=== PATIENT | male | born 1965 | race Two or more races ===

== ENCOUNTER 2024-06-25 18:10 | Emergency (ER) | payer BC, SELFPAY ==
[2024-06-25] VITALS (10 sets, daily range): BP systolic 124–212; BP diastolic 73–117; PULSE 61–87; RESP 14–18; TEMP 36.6–36.8; O2SAT 96–98; BMI 26.0
--- NOTE | 2024-06-25 19:07 | EKG_ITS ---
[facility] Test Date: 2024-06-25 Pat Name: VJ VAZQUEZ Department: Room: - Gender: Male [employer]ored Transport Service Manager: : 1965 Requested By: Konrad Bailey Order Number: [id number] Reading MD: Konrad Bailey Measurements Intervals [place] Rate: 55 P: 48 IL: 160 QRS: -10 QRSD: 112 T: 46 QT: 419 QTc: 401 Interpretive Statements SINUS BRADYCARDIA LEFT VENTRICULAR HYPERTROPHY AND ST-T CHANGE [VOLTAGE CRITERIA PLUS ST/T ABNORMALITY] No previous ECG available for comparison /store/S0/[id number].pdf
--- NOTE | 2024-06-25 19:07 | XR_ITS ---
Examination: CT brain head without contrast. 2-D sagittal coronal reconstructions Date and time of exam:June 25, 2024 1917 hrs. Indications: Onset headaches today CTDI: vol (mGy):47.9 DLP: (mGycm):973 Technique: Multiple CT axial sections of the brain have been obtained, 5 mm slice thickness. Contrast has not been administered. 2-D sagittal, coronal reconstructions have been obtained Low dose protocols were performed. One or more of the following dose reduction techniques were used; automated exposure control, adjustment of the mA and/or KV according to patient size, use of iterative reconstruction technique. Findings: Acute subdural hemorrhage involving the right and left cerebellar tentorium, greater left cerebellar tentorium, measuring up to 7 mm Subdural hemorrhage also along the cerebral falx measuring up to 12 mm in thickness involving the posterior cerebral falx Acute subdural hematoma peripheral to the posterior left parietal left occipital left temporal lobes measuring up to 12 mm in thickness There is mass effect upon the left trigone and there is shift of the frontal horns to the right approximately 3 mm Suspicious, axial image 23 4 minimal subarachnoid hemorrhage in the left sylvian fissure No ventricular hemorrhage No cranial vault appears intact Impression: Acute subdural hematoma peripheral to the posterior left parietal left occipital left temporal lobes measuring up to 12 mm in thickness, mass effect upon the left trigone and shift of the frontal horns to the right approximately 3 mm Additional acute subdural hemorrhage involving right and left cerebellar tentorium and especially posterior cerebral falx measuring up to 12 mm
--- NOTE | 2024-06-25 19:08 | EDNOTE_ITS ---
Nausea/Vomit./Diarrhea-RME/HPI General Chief complaint: Nausea/Vomiting/Diarrhea Stated complaint: N/VOMITING,H/A AFTER DRINKING COFFEE YEST. Time Seen by Provider: 06/25/24 18:26 Arrival date/time: 06/25/24 18:10 RME / HPI RME / HPI Narrative: Patient is a 59-year-old male with no known past medical history who presents with complaint of nausea and vomiting with headache onset yesterday. Patient states yesterday morning he woke up to drink coffee and then developed a headache. He then started having vomiting and he thought it would get better, but his headache did not resolve. Patient is not on any anticoagulation. No fevers. No abdominal pain. Denies diarrhea. Related Data Allergies Allergy/AdvReac Type Severity Reaction Status Date / Time No Known Allergies Allergy Verified 06/25/24 18:14 Review of Systems Review of Systems Narrative Review of Systems: Review of systems negative except as outlined in the HPI. ED Exam Narrative Physical exam: Constitutional: no acute distress, age appropriate, non-toxic Eyes: PERRL, conjunctivae w/o pallor, EOMI HENT: normocephalic, atraumatic. Oral mucosa moist Respiratory Effort: no stridor, effort normal, no retractions Breath sounds: Clear bilaterally; No rales, No rhonchi, No wheezing Cardiovascular: regular rhythm, S1 and S2 normal, no murmur Abdominal: soft; non-distended, non-tender Musculoskeletal: no deformities, no swelling, no LE edema Skin: warm, dry; No rash Neurology: alert, oriented X 4. Normal gait. Cranial nerves II through XII intact. 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 5 out of 5 lower extremity strength bilaterally. Normal [id number]. Psychology: cooperative, normal mood Course Course Course Narrative: 1924: Received call from radiologist, . Acute subdural hematoma. Patient immediately roomed in room 2. Head of bed to 30 degrees and will start nicardipine drip 2004: Case discussed with ED attending, Dr. Collins, who agrees with management. 2009: Spoke to neuro interventionalist at [facility], Dr. Baker, and patient's case was discussed in detail. Pending acceptance. 2138: Pending acceptance at [facility]. BP 147/79 220: [facility] declines transfer due to capacity 2204: Spoke to [facility] transfer center nurse 2312: Accepted to [facility] by Dr. Barba, ER to ER Quality Measures none Orders Category Date Time Status Advertising Campaign Manager Q4H START 00 Care 06/25/24 19:33 Completed EKG (ED ONLY) *Do not use* NOW Care 06/25/24 19:07 Completed Head of Bed Elevation NOW Care 06/25/24 19:33 Completed Insert IV NOW Care 06/25/24 19:[address] head/brain wo con Stat Exams 06/25/24 19:07 Completed EKG (ED Only) Stat Exams 06/25/24 19:07 Draft CBC Stat Lab 06/25/24 19:30 Completed CMP [Comprehensive Metabolic Panel] Stat Lab 06/25/24 19:30 Completed Lipase Stat Lab 06/25/24 19:30 Completed PT [Prothrombin Time with INR] Stat Lab 06/25/24 19:30 Completed PTT [Partial Thromboplastin Time] Stat Lab 06/25/24 19:30 Completed Troponin I Stat Lab 06/25/24 19:30 Completed Acetaminophen Tab [Tylenol ES Tab] Med 06/25/24 19:07 Discontinued 1,000 mg PO X1 ONE Morphine Inj Med 06/25/24 21:42 Discontinued 4 mg IVP X1 ONE NIFEdipine [Procardia] Med 06/25/24 19:10 Discontinued 10 mg PO X1 ONE Nicardipine/Ns 20Mg Ivpb [Cardene Ivpb] Med 06/25/24 19:35 Discontinued 20 mg in 200 ml IV 5 mg/hr Ondansetron Inj [Zofran Inj] Med 06/25/24 21:42 Discontinued 4 mg IV X1 ONE Vital Signs Vital signs: Vital Signs Temperature 97.9 F 06/25/24 19:09 Pulse Rate 63 06/25/24 19:09 Respiratory Rate 18 06/25/24 19:09 Blood Pressure 200/113 H 06/25/24 19:09 Pulse Oximetry (%) 98 06/25/24 19:09 Oxygen Delivery Method Room Air 06/25/24 19:09 Nausea/Vomiting/Diarrhea MDM Narrative MDM Narrative:: Patient is a 59-year-old male who presented to the ED with complaint of headache and vomiting. Differential diagnoses include tension headache, migraine headache, viral syndrome, gastroenteritis, ICH Head CT showing evidence of subdural hemorrhage. Neuro exam without focal deficits. Patient immediately roomed with head of bed elevated to 30 degrees and nicardipine drip was initiated. Labs are unremarkable. EKG without evidence of any ischemic changes. Patient will be transferred to [facility] for further care. Patient data External records reviewed:: [facility] previous records Clinical information provided by:: patient and family Social determinants that could affect healthcare access:: none Patient has the following chronic illnesses:: None How is presenting disease/condition affected by chronic disease/condition?: no chronic disease Evaluation data The following diagnostics were reviewed and interpreted by me:: lab results, radiology exam(s) and EKG tracing(s) Lab and/or radiology exams considered but not ordered:: None Interpretation Summary: Sinus bradycardia with a rate of 55. GA and QT intervals within normal limits. No ST/T changes. No STEMI. Interpretation: Normal EKG CBC shows no leukocytosis or anemia CMP shows no electrolyte abnormalities, no MILES. LFTs less than 3x upper limit of normal PT/INR normal Examination: CT brain head without contrast. 2-D sagittal coronal reconstructions Date and time of exam:June 25, 2024 1917 hrs. Indications: Onset headaches today Findings: Acute subdural hemorrhage involving the right and left cerebellar tentorium, greater left cerebellar tentorium, measuring up to 7 mm Subdural hemorrhage also along the cerebral falx measuring up to 12 mm in thickness involving the posterior cerebral falx Acute subdural hematoma peripheral to the posterior left parietal left occipital left temporal lobes measuring up to 12 mm in thickness There is mass effect upon the left trigone and there is shift of the frontal horns to the right approximately 3 mm Suspicious, axial image 23 4 minimal subarachnoid hemorrhage in the left sylvian fissure No ventricular hemorrhage No cranial vault appears intact Impression: Acute subdural hematoma peripheral to the posterior left parietal left occipital left temporal lobes measuring up to 12 mm in thickness, mass effect upon the left trigone and shift of the frontal horns to the right approximately 3 mm Additional acute subdural hemorrhage involving right and left cerebellar tentorium and especially posterior cerebral falx measuring up to 12 mm Medications / Prescriptions Medications / Prescriptions considered but not ordered:: N/A Medication administrations:: Medication Administration History Discontinued Medications Acetaminophen (Acetaminophen 500 Mg Tablet) 1,000 mg PO X1 ONE Stop: 06/25/24 19:08 Last Admin: 06/25/24 19:15 Dose: 1,000 mg Documented By: OA Nicardipine/Sodium Chloride (Cardene Ivpb) 20 mg in 200 mls @ 50 mls/hr IV .Q4H PRN; Protocol PRN Reason: PER PROTOCOL Stop: 07/25/24 19:34 Last Titration: 06/25/24 23:00 Dose: 0 mg/hr, 0 mls/hr Documented By: Titration: 06/25/24 22:55 Dose: 0 mg/hr, 0 mls/hr Documented By: Titration: 06/25/24 22:50 Dose: 0 mg/hr, 0 mls/hr Documented By: Titration: 06/25/24 22:45 Dose: 0 mg/hr, 0 mls/hr Documented By: Titration: 06/25/24 22:40 Dose: 2.5 mg/hr, 25 mls/hr Documented By: Titration: 06/25/24 22:35 Dose: 5 mg/hr, 50 mls/hr Documented By: Titration: 06/25/24 22:30 Dose: 7.5 mg/hr, 75 mls/hr Documented By: Titration: 06/25/24 22:25 Dose: 10 mg/hr, 100 mls/hr Documented By: Titration: 06/25/24 22:20 Dose: 10 mg/hr, 100 mls/hr Documented By: Titration: 06/25/24 22:15 Dose: 12.5 mg/hr, 125 mls/hr Documented By: Admin: 06/25/24 22:08 Dose: 15 mg/hr, 150 mls/hr Documented By: Titration: 06/25/24 22:04 Dose: Infused Documented By: Titration: 06/25/24 21:20 Dose: 15 mg/hr, 150 mls/hr Documented By: Titration: 06/25/24 21:15 Dose: 15 mg/hr, 150 mls/hr Documented By: Titration: 06/25/24 21:10 Dose: 15 mg/hr, 150 mls/hr Documented By: Titration: 06/25/24 21:05 Dose: 15 mg/hr, 150 mls/hr Documented By: Titration: 06/25/24 21:00 Dose: 15 mg/hr, 150 mls/hr Documented By: Titration: 06/25/24 20:55 Dose: 15 mg/hr, 150 mls/hr Documented By: Titration: 06/25/24 20:50 Dose: 12.5 mg/hr, 125 mls/hr Documented By: Titration: 06/25/24 20:45 Dose: 10 mg/hr, 100 mls/hr Documented By: Titration: 06/25/24 20:40 Dose: 7.5 mg/hr, 75 mls/hr Documented By: Admin: 06/25/24 20:35 Dose: 5 mg/hr, 50 mls/hr Documented By: KG Morphine Sulfate (Morphine Sulf Inj 10 Mg/Ml Vial) 4 mg IVP X1 ONE Stop: 06/25/24 21:43 Last Admin: 06/25/24 22:06 Dose: 4 mg Documented By: KG Nifedipine (Nifedipine 10 Mg Capsule) 10 mg PO X1 ONE Stop: 06/25/24 19:11 Last Admin: 06/25/24 19:16 Dose: 10 mg Documented By: OA Ondansetron HCl (Ondansetron Inj 2 Mg/Ml Inj 2 Ml) 4 mg IV X1 ONE; Protocol Stop: 06/25/24 21:43 Last Admin: 06/25/24 22:04 Dose: 4 mg Documented By: KG See above Consultations Consultation(s) initiated? (list below): No Diagnosis Nausea Differential Diagnosis: traveler's diarrhea, food poisoning, gastroenteritis and other (Migraine, tension headache, ICH) Most likely diagnosis given after review of the tests above:: Subdural hemorrhage Admission Indicated Admission indicated?: indicated ((Transfer [facility])) Admission Request Was there a request for admission?: No Disposition Plan Disposition Plan: Transfer Critical Care Time Critical Care Time Critical Care Time: Yes Total Critical Care Time (min.): 35 Attestation: Due to a high probability of clinically significant, life threatening deterioration, the patient required my highest level of preparedness to intervene emergently and I personally spent this critical care time directly and personally managing the patient. This critical care time included obtaining a history; examining the patient; pulse oximetry; ordering and review of studies; arranging urgent treatment with development of a management plan; evaluation of patient's response to treatment; frequent reassessment; and, discussions with other providers. This critical care time was performed to assess and manage the high probability of imminent, life-threatening deterioration that could result in multi-organ chas lure. It was exclusive of separately billable procedures and treating other patients. Please see MDM section and the rest of the note for further information on patient assessment and treatment. Systems: Neuro, cardiovascular Discharge Plan Plan Patient Disposition: er [facility] Facility Pt Being Transferred to: [facility] Service Needed for Transfer: Neurosurgery Prescriptions/Referrals Referrals: No Primary/Family,Physician [Primary Care Provider] - In 1 week Problem List Clinical Impression: Subdural hemorrhage, Hypertension Patient/Caregiver Discharge Instructions Print Language: Rwandan Stand Alone Forms: Connie Award Info., Patient Portal Info Letter
[2024-06-25] MEDS: ACETAMINOPHEN 500 MG TABLET 1000 MG PO (19:15)
[2024-06-25] MEDS: NIFEdipine 10 MG CAPSULE PO (19:16)
[2024-06-25 19:46] LABS: Basophils # (Auto) 0.1 Thou/mm3 (0.0-0.2); Basophils % (Auto) 1 % (0-2.5); Eosinophils % (Auto) 0 % (0-10); Hematocrit 40.9 % (41.0-53.0); Immature Granulocytes % (Auto) 0 % (0-0); Immature Granulocytes Auto 0.01 Thou/mm3 (0.00-0.00); Lymphocytes # (Auto) 1.9 Thou/mm3 (1.0-4.8); Lymphocytes % (Auto) 20 % (10-50); Mean Corpuscular HGB Conc 34.2 g/dl (31.0-37.0); Mean Corpuscular Hemoglobin 29.7 pg (25.0-35.0); Mean Corpuscular Volume 87 fL (80-100); Monocytes # (Auto) 0.7 Thou/mm3 (0.0-0.8); Monocytes % (Auto) 7 % (0-12); Neutrophils # (Auto) 7.2 Thou/mm3 (1.8-7.7); Neutrophils % (Auto) 73 % (37-80); Nucleated Red Blood Cell % 0 /100 WBC (0); Platelet Count 221 Thou/mm3 (140-440); RDW Standard Deviation 40.5 fL (35.1-43.9); Red Blood Count 4.72 Miln/mm3 (4.50-5.90); White Blood Count 9.9 Thou/mm3 (3.8-10.6)
[2024-06-25 20:10] LABS: Alanine Aminotransferase 30 U/L (10-49); Albumin, Serum 4.8 gm/dL (3.4-4.8); Albumin/Globulin Ratio 1.2 (1.2-2.2); Alkaline Phosphatase 72 U/L (46-116); Anion Gap 8 (7-16); Aspartate Amino Transferase 12 U/L (0-34); BUN/Creatinine Ratio 17 Ratio (12-20); Bilirubin,Total 0.9 mg/dL (0.3-1.2); Blood Urea Nitrogen 15 mg/dL (9-23); Calcium 9.6 mg/dL (8.3-10.6); Calcium (Corrected) 9.6 mg/dL (8.5-10.1); Carbon Dioxide 26.7 mMol/L (20.0-31.0); Chloride 98 mMol/L (98-107); Creatinine (Component) 0.9 mg/dL (0.6-1.3); Estimated Creatinine Clearance 73.1 mL/min (>60); Globulin 3.9 gm/dL (2.3-3.5); Glucose 122 mg/dL (74-106); Lipase 32 U/L (12-53); Osmolality,Calculated 268 (275-295); Potassium 4.5 mMol/L (3.4-5.1); Sodium 133 mMol/L (136-145); Total Protein 8.7 gm/dL (5.7-8.2); Troponin I < 0.020 ng/mL (0.0-0.045); eGFR > 60 See Note
[2024-06-25 20:20] LABS: Partial Thromboplastin Time 27.3 Seconds (22.0-36.0); Prothrombin Time 11.2 Seconds (9.0-12.2)
--- NOTE | 2024-06-25 20:34 | PC.NURSE ---
1953 [facility] CONTACTED ONLY ACCEPTING TRAUMA AT THIS TIME. 1999 SWAPNIL STINSON CONTACTED PT PKT SENT. 2029 SWAPNIL RETURNED CALL GAVE UPDATED CLINICALS, WILL CALL IF ICU BED AVAILABLE.
[2024-06-25] MEDS: NICARDIPINE/NS 20MG IVPB 20 MG/200 ML BAG 50 MG IV (20:35)
--- NOTE | 2024-06-25 21:21 | PC.NURSE ---
MAKEDA FROM THE [facility] CALLED AND THEY ARE NOT ABLE TO ACCEPT THE AT THIS TIME DUE TO CAPACITY.
--- NOTE | 2024-06-25 21:42 | PC.NURSE ---
Pt requesting something for severe headache - provider informed.
--- NOTE | 2024-06-25 21:56 | PC.NURSE ---
Attempted to call after hours pharmacy x3 to get zofran verified and no one answers.
[2024-06-25] MEDS: ONDANSETRON INJ 2 MG/ML INJ 2 ML 4 MG IV (22:04)
[2024-06-25] MEDS: MORPHINE SULF INJ 10 MG/ML VIAL 4 MG IVP (22:06)
[2024-06-25] MEDS: NICARDIPINE/NS 20MG IVPB 20 MG/200 ML BAG 150 MG IV (22:08)
--- NOTE | 2024-06-25 23:07 | PC.NURSE ---
THIS PT IS ACCEPTED TO [facility] BY DR. GUILLORY. THIS IS A ER:ER TRANSFER AND NUM,MARTHA FOR REPORT IS [phone]. COLBY WAS THE FACILITY REP I SPOKE WITH FOR ACCEPTING INFORMATION.
--- NOTE | 2024-06-25 23:49 | PC.NURSE ---
Report called to YUSUF Lassiter via phone for transfer to [facility]. Ambulance ETA of 0030, pt and his family informed.
[2024-06-26] VITALS: BP 125/76; PULSE 63; RESP 16; O2SAT 96
--- NOTE | 2024-06-26 00:17 | PC.NURSE ---
Ambulance here for transfer to [facility], report given to EMS at the bedside.
== END 2024-06-26 00:22 | disposition short-term general hospital (02) ==
PROVIDERS: Physician Assistant; Emergency Provider Emergency Medicine
DX: S06.5XAA Traumatic subdural hemorrhage with loss of consciousness status unknown, initial encounter (principal); I10 Essential (primary) hypertension; X58.XXXA Exposure to other specified factors, initial encounter
CPT/HCPCS: 36415; 70450; 80053; 83690; 84484; 85025; 85610; 85730; 93005; 96374; 96375; 99291; J2270; J2404; J2405; A9270